=== PATIENT | female | born 1975 | race Caucasian/White ===

== ENCOUNTER 2017-05-20 12:25 | Day surgery (SDC) | payer BC ==
[2017-05-20] MEDS ORDERED: IRON SUCROSE INJECTION 200 MG in SODIUM CHLORIDE 100 ML IVPB ONE (12:45)
[2017-05-20 12:55] VITALS: BP 132/74; PULSE 72; TEMP 98.4; BMI 24.7
== END 2017-05-20 13:30 | disposition home or self-care (01) ==
LOC: FINFUSION 12:25 → FM/S 12:29 → FINFUSION 13:30
PROVIDERS: ATTEND Internal Medicine Hematology & Oncology
PROC: 3E033GC Introduction of Other Therapeutic Substance into Peripheral Vein, Percutaneous Approach (ICD-10-PCS; principal; 2017-05-20)
DX: D50.9 Iron deficiency anemia, unspecified (principal)
CPT/HCPCS: 96365

== ENCOUNTER 2017-05-27 12:13 | Day surgery (SDC) | payer BC ==
[2017-05-27] MEDS ORDERED: IRON SUCROSE INJECTION 200 MG in SODIUM CHLORIDE 100 ML IVPB ONE (12:45)
[2017-05-27 13:23] VITALS: BP 115/50; PULSE 70; TEMP 98.3; BMI 24.7
== END 2017-05-27 14:20 | disposition home or self-care (01) ==
LOC: FINFUSION 12:13 → FM/S 12:16 → FINFUSION 14:20
PROVIDERS: ATTEND Psychiatry & Neurology Psychiatry
PROC: 3E033GC Introduction of Other Therapeutic Substance into Peripheral Vein, Percutaneous Approach (ICD-10-PCS; principal; 2017-05-27)
DX: D50.9 Iron deficiency anemia, unspecified (principal)
CPT/HCPCS: 96365; J1756

== ENCOUNTER 2017-09-16 14:40 | Day surgery (SDC) | payer BC ==
[2017-09-16] MEDS ORDERED: IRON SUCROSE INJECTION 200 MG in SODIUM CHLORIDE 100 ML IVPB ONE (15:00)
[2017-09-16 15:20] VITALS: TEMP 97.8
[2017-09-16 16:29] VITALS: BP 103/66; PULSE 69
== END 2017-09-16 16:34 | disposition home or self-care (01) ==
LOC: FINFUSION 14:40 → FM/S 14:44 → FINFUSION 16:34
PROVIDERS: ATTEND Internal Medicine Hematology & Oncology
PROC: 3E033GC Introduction of Other Therapeutic Substance into Peripheral Vein, Percutaneous Approach (ICD-10-PCS; principal; 2017-09-16)
DX: D50.9 Iron deficiency anemia, unspecified (principal)
CPT/HCPCS: 96365; J1756

== ENCOUNTER 2017-09-23 13:50 | Day surgery (SDC) | payer BC ==
[2017-09-23] MEDS ORDERED: IRON SUCROSE INJECTION 200 MG in SODIUM CHLORIDE 100 ML IVPB ONE (14:00)
[2017-09-23 15:13] VITALS: TEMP 98.3
[2017-09-23 15:34] VITALS: BP 125/77; PULSE 70
== END 2017-09-23 15:37 | disposition home or self-care (01) ==
LOC: FINFUSION 13:50 → FM/S 15:07 → FINFUSION 15:37
PROVIDERS: ATTEND Internal Medicine Hematology & Oncology
PROC: 3E033GC Introduction of Other Therapeutic Substance into Peripheral Vein, Percutaneous Approach (ICD-10-PCS; principal; 2017-09-23)
DX: D50.9 Iron deficiency anemia, unspecified (principal)
CPT/HCPCS: 96365; J1756

== ENCOUNTER 2017-09-30 15:49 | Day surgery (SDC) | payer BC ==
[2017-09-30] MEDS ORDERED: IRON SUCROSE INJECTION 200 MG in SODIUM CHLORIDE 100 ML IVPB ONE (16:00)
[2017-09-30 16:47] VITALS: BP 115/63; PULSE 82; TEMP 98.7; BMI 24.7
== END 2017-09-30 17:00 | disposition home or self-care (01) ==
LOC: FINFUSION 15:49 → FM/S 15:49 → FINFUSION 17:00
PROVIDERS: ATTEND Internal Medicine Hematology & Oncology
PROC: 3E033GC Introduction of Other Therapeutic Substance into Peripheral Vein, Percutaneous Approach (ICD-10-PCS; principal; 2017-09-30)
DX: D50.9 Iron deficiency anemia, unspecified (principal)
CPT/HCPCS: 96365; J1756

== ENCOUNTER 2017-10-07 14:16 | Day surgery (SDC) | payer BC ==
[2017-10-07] MEDS ORDERED: IRON SUCROSE INJECTION 200 MG in SODIUM CHLORIDE 100 ML IVPB ONE (14:30)
[2017-10-07 14:45] VITALS: BP 122/74; PULSE 72; TEMP 98.2
== END 2017-10-07 15:05 | disposition home or self-care (01) ==
LOC: FINFUSION 14:16 → FM/S 14:17 → FINFUSION 15:05
PROVIDERS: ATTEND Psychiatry & Neurology Psychiatry
PROC: 3E033GC Introduction of Other Therapeutic Substance into Peripheral Vein, Percutaneous Approach (ICD-10-PCS; principal; 2017-10-07)
DX: D50.9 Iron deficiency anemia, unspecified (principal)
CPT/HCPCS: 96365

== ENCOUNTER 2018-01-04 11:11 | Day surgery (SDC) | payer BC ==
[2018-01-04] MEDS ORDERED: IRON SUCROSE INJECTION 200 MG in SODIUM CHLORIDE 100 ML IVPB ONE (12:00)
[2018-01-04 12:05] VITALS: TEMP 98.4
[2018-01-04 12:46] VITALS: BP 100/70; PULSE 70
== END 2018-01-04 12:43 | disposition home or self-care (01) ==
LOC: FINFUSION 11:11 → FM/S 11:32 → FINFUSION 12:43
PROVIDERS: ATTEND Internal Medicine Hematology & Oncology
PROC: 3E033GC Introduction of Other Therapeutic Substance into Peripheral Vein, Percutaneous Approach (ICD-10-PCS; principal; 2018-01-04)
DX: D50.9 Iron deficiency anemia, unspecified (principal)
CPT/HCPCS: 96365; J1756

== ENCOUNTER 2018-01-11 11:06 | Day surgery (SDC) | payer BC ==
[2018-01-11 11:51] VITALS: TEMP 98
[2018-01-11] MEDS ORDERED: IRON SUCROSE INJECTION 200 MG in SODIUM CHLORIDE 100 ML IVPB ONE (12:00)
[2018-01-11 12:52] VITALS: BP 123/66; PULSE 57
== END 2018-01-11 14:00 | disposition home or self-care (01) ==
LOC: FINFUSION 11:06 → FM/S 11:10 → FINFUSION 14:00
PROVIDERS: ATTEND Internal Medicine Hematology & Oncology
PROC: 3E033GC Introduction of Other Therapeutic Substance into Peripheral Vein, Percutaneous Approach (ICD-10-PCS; principal; 2018-01-11)
DX: D50.9 Iron deficiency anemia, unspecified (principal)
CPT/HCPCS: 96365; J1756

== ENCOUNTER 2018-01-18 13:21 | Day surgery (SDC) | payer BC ==
[2018-01-18] MEDS ORDERED: IRON SUCROSE INJECTION 200 MG in SODIUM CHLORIDE 100 ML IVPB ONE (14:00)
[2018-01-18 14:12] VITALS: PULSE 54; TEMP 98.2
[2018-01-18 14:26] VITALS: BP 98/52
== END 2018-01-18 14:22 | disposition home or self-care (01) ==
LOC: FINFUSION 13:21 → FM/S 13:22 → FINFUSION 14:22
PROVIDERS: ATTEND Internal Medicine Hematology & Oncology
PROC: 3E033GC Introduction of Other Therapeutic Substance into Peripheral Vein, Percutaneous Approach (ICD-10-PCS; principal; 2018-01-18)
DX: E61.1 Iron deficiency (principal)
CPT/HCPCS: 96365; J1756

== ENCOUNTER 2018-06-02 15:17 | Day surgery (SDC) | payer BC ==
[2018-06-02] MEDS ORDERED: IRON SUCROSE INJECTION 200 MG in SODIUM CHLORIDE 100 ML IVPB ONE (15:45)
[2018-06-02] MEDS ORDERED: HYDROCORTISONE SOD SUCCINATE 100 MG/2 ML VIAL IVPUSH SCH (15:45)
[2018-06-02 16:41] VITALS: TEMP 97.8
[2018-06-02 17:23] VITALS: BP 102/65; PULSE 72
== END 2018-06-02 16:33 | disposition home or self-care (01) ==
LOC: FINFUSION 15:17 → FM/S 15:36 → FINFUSION 16:33
PROVIDERS: ATTEND Internal Medicine Hematology & Oncology
PROC: 3E033GC Introduction of Other Therapeutic Substance into Peripheral Vein, Percutaneous Approach (ICD-10-PCS; principal; 2018-06-02)
DX: E61.1 Iron deficiency (principal)
CPT/HCPCS: 96365; J1756

== ENCOUNTER 2019-11-09 13:32 | Day surgery (SDC) | payer BC ==
[2019-11-09] MEDS ORDERED: IRON SUCROSE INJECTION 200 MG/100 ML BAG IVPB ONE (13:45)
[2019-11-09 14:23] VITALS: BP 110/60; PULSE 80; TEMP 98.2
== END 2019-11-09 14:26 | disposition home or self-care (01) ==
LOC: FINFUSION 13:32 → FM/S 13:35 → FINFUSION 14:26
PROVIDERS: ATTEND Internal Medicine Hematology & Oncology
PROC: 3E033GC Introduction of Other Therapeutic Substance into Peripheral Vein, Percutaneous Approach (ICD-10-PCS; principal; 2019-11-09)
DX: D50.9 Iron deficiency anemia, unspecified (principal)
CPT/HCPCS: 96365; J1756

== ENCOUNTER 2019-11-17 11:40 | Day surgery (SDC) | payer BC ==
[2019-11-17] MEDS ORDERED: IRON SUCROSE INJECTION 200 MG in SODIUM CHLORIDE 100 ML IVPB ONE (11:45)
[2019-11-17 12:41] VITALS: BP 126/57; PULSE 80; TEMP 97.7; BMI 25.9
== END 2019-11-17 14:12 | disposition home or self-care (01) ==
LOC: FINFUSION 11:40 → FM/S 12:10 → FINFUSION 14:12
PROVIDERS: ATTEND Internal Medicine Hematology & Oncology
PROC: 3E033GC Introduction of Other Therapeutic Substance into Peripheral Vein, Percutaneous Approach (ICD-10-PCS; principal; 2019-11-17)
DX: D50.9 Iron deficiency anemia, unspecified (principal)
CPT/HCPCS: 96365; J1756

== ENCOUNTER 2019-11-23 11:42 | Day surgery (SDC) | payer BC ==
[2019-11-23] MEDS ORDERED: IRON SUCROSE INJECTION 200 MG/100 ML BAG IVPB ONE (12:00)
[2019-11-23 13:03] VITALS: BP 139/72; PULSE 86; TEMP 97.8
== END 2019-11-23 13:28 | disposition home or self-care (01) ==
LOC: FINFUSION 11:42 → FM/S 11:42 → FINFUSION 13:28
PROVIDERS: ATTEND Internal Medicine Hematology & Oncology
PROC: 3E033GC Introduction of Other Therapeutic Substance into Peripheral Vein, Percutaneous Approach (ICD-10-PCS; principal; 2019-11-23)
DX: D50.9 Iron deficiency anemia, unspecified (principal)
CPT/HCPCS: 96365; J1756